=== PATIENT | female | born 1990 | race African-American/Black ===

== ENCOUNTER 2019-10-29 05:36 | Emergency (ER) | payer OTHER ==
[~2019-10-29] VITALS: Ht 170.2 cm; Wt 64.0 kg
[2019-10-29 05:42] VITALS: BP 121/83
== END 2019-10-29 06:00 | disposition left against medical advice (07) ==
LOC: ER 05:36
DX: Z53.21 Procedure and treatment not carried out due to patient leaving prior to being seen by health care provider (principal)